=== PATIENT | male | born 1945 | race Caucasian/White ===

== ENCOUNTER → 2020-02-22 08:14 | Outpatient (REF) | payer MEDICARE, SELFPAY ==
--- NOTE | 2020-02-22 | NM_ITS ---
Myocardial perfusion study Indication: Chest pain with risk factors to evaluate for myocardial ischemia Technique: The patient was brought in for a Lexiscan perfusion study on 02/22/2020. Patient performed low-level exercise and was injected 0.4 mg of Lexiscan intravenously. Within a minute of injection, 25 mCi of sestamibi was given intravenously. Images were obtained using the SPECT gamma camera interlaced with the gating device. Images were obtained in supine position. Resting perfusion study was performed on 02/26/2020. Patient was administered 25 mCi of sestamibi intravenously at rest. Images were then obtained in supine position. Images obtained with and without CT attenuation. Total DLP 68 MGY-CM. Images were processed with the software and compared side to side in short axis, horizontal long axis and vertical long axis views. Findings: The stress perfusion study showed non attenuated images show mildly reduced uptake in the inferior wall of the LV myocardium. Remainder of the LV myocardium is normally perfused. Attenuation corrected images show minimally reduced uptake in the apex of the LV myocardium.. The gated study shows normal LV systolic function with calculated LVEF of greater than 70 %. LV cavity is normal in size. The gated study shows normal systolic wall thickening and contraction of segments. Resting study shows no change in perfusion pattern compared to stress perfusion study. Gating at rest reveals normal systolic wall motion with ejection fraction at greater than70 %. The findings are consistent with normal myocardial perfusion. NM/NM oneal perf SPECT rest & str Impression: 1. Myocardial perfusion imaging study shows normal myocardial perfusion 2. Gated LVEF is greater than 70% 3. Transient ischemic dilatation not present EKG is nondiagnostic for ischemia
--- NOTE | 2020-02-22 08:19 | CA_ITS ---
Transthoracic Echocardiogram Patient (Last, First, Middle): Ketan Doll A Gender: Male Date of : 1945 Age: 75 Procedure Date: 02/22/2020 Procedure Type: Transthoracic Echocardiogram Location: OP Height: 182.88 cm Weight: 81.76 kg BSA: 2.04 m2 Heart Rate: bpm BP: 150 / 73 mmHg Net C Developer: Referring MD: Reji Jennings [facility] [place] Insulator: Bro Acevedo MD Symptoms: R07.89 - Other chest pain Study Quality: Good ECG Rhythm: Sinus Conclusions: - 1. Normal LV systolic and diastolic function next 2. Normal cardiac valvular Doppler 3. No pericardial effusion Findings Left Ventricle Normal left ventricular size, thickness, and systolic function. The visually estimated ejection fraction is between 60-65%. Diastolic function is normal for age. Right Ventricle Normal right ventricular cavity size and systolic function. Atria Both atria are normal in size. There is lipomatous hypertrophy of the interatrial septum. There is a mobile atrial septum noted. There is no evidence of interatrial shunt. Aortic Valve There is mild calcification of the aortic valve. There is no aortic valve stenosis. There is no aortic valve regurgitation. Mitral Valve There is mild anterior and posterior mitral leaflet thickening. There is mild mitral annular calcification. There is trace mitral valve regurgitation. There is no mitral valve stenosis. Pulmonic Valve The pulmonic valve is likely normal. There is trace pulmonic valve regurgitation. Tricuspid Valve Likely normal tricuspid valve structure and function. Tricuspid regurgitation envelope is inadequate for calculation of right ventricular systolic pressure. Great Vessels All visible segments of the aorta are normal in size. The pulmonary artery was not well visualized. Venous The inferior vena cava is normal in size and collapses greater than 50% with inspiration. Pericardium/Pleural There is no evidence of pericardial effusion. Prior Study Comparison No prior study available for comparison. Measurements 2D Linear Measurements RVIDd: 2.71 RVIDd Index: 1.33 IVSd: 0.94 0.6-0.9/0.6-1.0 cm LVIDd: 4.98 3.9-5.3/4.2-5.9 cm LVIDd Index: 2.44 2.4-3.2/2.2-3.1 cm/m2 LVIDs: 3.26 2.0-3.6 cm LVPWd: 1.02 0.7-1.1 cm Ao Root: 3.90 2.1-3.5 cm LA Diam: 3.70 2.7-3.8/3.0-4.0 cm LAIDs Index: 1.81 1.5-2.3 cm/m2 LV Mass: 219.78 67-162/88-224 g LV Mass Index: 107.74 43-95/49-115 g/m2 LVOT Diam: 2.30 3.0+(-)1.3 cm 2D Systolic Function EF 4C: 63.70 >55% EF 2C: 62.10 >55% EF BiP: 63.80 >55% Mitral Valve MV Pk E: 0.74 MV PK A: 0.61 MV Decel Time: 179.00 E/A: 1.20 E'Lateral: 7.51 E'Medial: 6.42 E/E' Med: 11.50 E/E' Lat: 9.90 Aortic Valve AoV Pk Roberto: 1.78 AoV Mn Roberto: 1.21 AoV VTI: 0.38 AoV Pk Grad: 13.00 Aov Mn Grad: 6.00 CARYL Cont.VTI: 2.17 LVOT LVOT Pk Roberto: 0.93 LVOT Mn Roberto: 0.58 LVOT VTI: 0.20 LVOT Pk Grad: 3.00 LVOT Mn Grad: 2.00 LVOT Diam: 2.30 LVOT Area: 4.15 Diastolic Function MV Pk E: 0.74 MV Pk A: 0.61 E/A: 1.20 E'Medial: 6.42 E/E' Med: 11.50 E' Laterial: 7.51 E/E' Lat: 9.90 Tricuspid Valve TV Pk Roberto: 1.32 TV Pk Grad: 7.00 RA Press: 3.00 Great Vessels Aorta Ao Root-2D: 3.90 2.0-3.7 cm Ao Asc: 3.60 2.1-3.4 cm Ao Arch: 3.50 Updated in Other Vendor System with Status of Final Bro Acevedo MD electronically signed on 02/22/2020 3:42:07 PM with status of Final
--- NOTE | 2020-02-22 08:19 | CA_ITS ---
Acquisition Time: 2020-02-22 09:24:33 Total Exercise Time: 00:02:00 Test Indications: R07.89 - Other chest pain Medications: Protocol: LEXISCAN Max HR: 114 BPM 79% of Pred: 144 BPM Max BP: 122/076 mmHG Max Work Load: 1.0 METS Pharmacological stress test using Lexiscan while sitting and kicking his feet. Pt tolerated well, denies any anginal sx. EKG without any arrhythmias, non-diagnostic for ischemia. Nuclear images to follow. Normotensive response to test. Test reviewed with Dr. Medina Referred By: Reji Jennings Overread By: [facility]
== END ==
LOC: HO.CARD 08:14
PROVIDERS: PCP Nurse Practitioner Family; Visit Provider Nurse Practitioner Family
DX: R07.89 Other chest pain (principal)
CPT/HCPCS: 78452; 93017; 93306; A9500; J0280; J2785

== ENCOUNTER 2020-08-04 08:33 | Outpatient (REF) | payer MEDICARE, SELFPAY ==
[2020-08-04 11:56] LABS: Alanine Aminotransferase 24 U/L (0-40); Albumin Level 4.4 g/dL (3.5-5.0); Alkaline Phosphatase 101 U/L (39-117); Anion Gap 12 (12-20); Aspartate Amino Transferase 25 U/L (5-37); Bilirubin Total 1.2 mg/dL (0.0-1.0); Blood Urea Nitrogen 15 mg/dL (9-16); Calcium 9.1 mg/dL (8.4-10.2); Carbon Dioxide 28 mmol/L (22-29); Chloride 105 mmol/L (96-108); Cholesterol 160 mg/dL; Estimated Glomerular Filt Rate 59; Glucose Fasting 108 mg/dL (60-99); HDL Cholesterol 61 mg/dL; LDL Cholesterol Calculated 71 mg/dl; Potassium 4.2 mmol/L (3.3-5.1); Sodium 141 mmol/L (135-145); Total Protein 7.4 g/dL (6.5-8.0); Triglycerides 144 mg/dL
[2020-08-04 12:19] LABS: Prostate Specific Antigen Scr 2.99 ng/mL (<0.05-4.0); TSH reflex Free T4 1.29 uIU/mL (0.32-4.0)
[2020-08-04 12:27] LABS: Creatinine Urine 163.14 mg/dL; Microalbum/Creatinine Ratio Ur 4.2 ug/mg cr
== END 2020-08-04 08:34 | disposition home or self-care (01) ==
LOC: HO.HMGCLDS 08:33
PROVIDERS: PCP Nurse Practitioner Family; Visit Provider Nurse Practitioner Family
DX: Z12.5 Encounter for screening for malignant neoplasm of prostate (principal); G62.9 Polyneuropathy, unspecified; E11.9 Type 2 diabetes mellitus without complications
CPT/HCPCS: 36415; 80053; 80061; 82043; 84153; 84443

== ENCOUNTER 2020-12-05 12:46 | Outpatient (REF) | payer MEDICARE, SELFPAY ==
[2020-12-05 14:05] LABS: Glucose Urine UA NEG (NEG); Leukocyte Esterase Urine NEG (NEG); Nitrite Urine NEG (NEG); Specific Gravity - Urine 1.025 (1.005-1.025); Urine Blood NEG (NEG); Urine Ketones NEG (NEG); Urine Protein NEG (NEG-TRACE)
[2020-12-05 14:09] LABS: Appearance Urine HAZY; Color Urine YELLOW
[2020-12-05 14:21] LABS: Estimated Average Glucose 143 mg/dL; Hemoglobin A1c % 6.6 %
[2020-12-05 14:39] LABS: Alanine Aminotransferase 22 U/L (0-40); Albumin Level 4.1 g/dL (3.5-5.0); Alkaline Phosphatase 103 U/L (39-117); Anion Gap 12 (12-20); Aspartate Amino Transferase 20 U/L (5-37); Bilirubin Total 0.9 mg/dL (0.0-1.0); Blood Urea Nitrogen 16 mg/dL (9-16); Calcium 9.3 mg/dL (8.4-10.2); Carbon Dioxide 25 mmol/L (22-29); Chloride 109 mmol/L (96-108); Estimated Glomerular Filt Rate > 60; Glucose Fasting 105 mg/dL (60-99); Potassium 4.3 mmol/L (3.3-5.1); Sodium 142 mmol/L (135-145); Total Protein 6.9 g/dL (6.5-8.0)
[2020-12-05 14:45] LABS: Mucus Urine 1+ /LPF; RBC Urine 0-2 /HPF (0); Squamous Epithelial Cell Urine TRACE /LPF; WBC Urine 0 /HPF (0-4)
[2020-12-05 14:52] LABS: Microalbum/Creatinine Ratio Ur 5.1 ug/mg cr
== END 2020-12-05 12:47 | disposition home or self-care (01) ==
LOC: HO.HMGCLDS 12:46
PROVIDERS: PCP Nurse Practitioner Family; Visit Provider Nurse Practitioner Family
DX: Z00.00 Encounter for general adult medical examination without abnormal findings (principal); R10.9 Unspecified abdominal pain; E11.9 Type 2 diabetes mellitus without complications
CPT/HCPCS: 36415; 80048; 80053; 81001; 82043; 83036; 87086

== ENCOUNTER 2020-12-12 11:30 | Outpatient (REF) | payer MEDICARE, SELFPAY | END 2020-12-12 11:31 | disposition home or self-care (01) | LOC: HO.LNP 11:30 | PROVIDERS: Visit Provider Hospitalist | DX: Z20.822 Contact with and (suspected) exposure to COVID-19 (principal); J40 Bronchitis, not specified as acute or chronic | CPT/HCPCS: U0003; U0005 ==

== ENCOUNTER 2021-05-25 02:46 | Emergency (ER) | payer MEDICARE, SELFPAY ==
--- NOTE | ~2021-05-25 | CT_ITS ---
EXAMINATION: CT ABDOMEN AND PELVIS WITHOUT CONTRAST CLINICAL INFORMATION: Right flank pain COMPARISON: 08/12/2016 TECHNIQUE: Multidetector volumetric imaging was performed from the superior aspect of the liver through the pubic symphysis. Sagittal and coronal reformatted images were obtained on the technologist's workstation. This CT examination was performed using dose optimization techniques as appropriate, variously including the following: *Automated exposure control *Adjustment of mA and/or kV according to patient size (this includes techniques or standardized protocols for targeted exams where dose is matched to indication/reason for exam; i.e. extremities or head) *Use of iterative reconstruction technique DLP: 623 mGy-cm FINDINGS: LUNG BASES: The visualized lung bases are clear. Coronary artery calcifications. LIVER, GALLBLADDER, AND BILIARY TREE: The liver is normal in size, shape, and attenuation. No focal hepatic lesion or biliary ductal dilatation is present. Cholecystectomy. PANCREAS: Unremarkable. SPLEEN: Unremarkable. ADRENAL GLANDS: Unremarkable. KIDNEYS AND URETERS: The kidneys are normal in size, shape, and attenuation. Duplicated right collecting system. No hydronephrosis or hydroureter. There are at least 5 left-sided renal calculi. 0.3 cm upper pole calculus is 7.5 cm from the posterior axillary line. There is a right upper pole 0.3 cm calculus which is 7.5 cm from the posterior axillary line. Exophytic lesions are seen at the lower pole of the left kidney. While some of these are consistent with simple cysts, there is a 1.5 cm hyperdense lesion. This had measured 1.2 cm on prior. BLADDER: Unremarkable. GASTROINTESTINAL TRACT: The stomach is unremarkable. Normal caliber of the small bowel. No obstruction. No colonic wall thickening or acute inflammation. Moderate colonic stool burden. Scattered diverticulosis without diverticulitis. Normal appendix. No free air or free fluid. ABDOMINAL WALL: Fat-containing small left inguinal hernia. LYMPH NODES: Normal. VASCULAR: Normal caliber aorta with mild atherosclerotic calcification. PELVIC VISCERA: Enlarged prostate measures 5.6 cm transverse. The seminal vesicles are unremarkable. OSSEOUS STRUCTURES: No acute or suspicious osseous abnormality. Degenerative changes throughout the spine. CT/CT abdomen pelvis wo con IMPRESSION: No acute findings of the abdomen or pelvis. No hydronephrosis. Multiple bilateral nonobstructing renal calculi. Simple left renal cyst with additional exophytic lesions measuring higher than simple fluid. These have been evaluated with prior ultrasound showing no concerning findings. Fleischner guidelines were followed.
[2021-05-25 02:48] VITALS: BP 134/77; PULSE 75; RESP 18; TEMP 36.9; O2SAT 99; BMI 24.7
--- NOTE | 2021-05-25 03:47 | ED_ITS ---
HPI - General Adult General Chief complaint: Fall Stated complaint: fall, back pain Time Seen by Provider: 05/25/21 03:45 History of Present Illness HPI narrative: Patient is 76-year-old male with a history diabetes. History of gallstones. No history of kidney stones in the past. Presents today with having fallen approximately 1 week ago. At the time patient did not notice any bowel urinary incontinence. States pain has been under control. Today patient turned the wrong way subsequently noted pain in the right flank area. It is worse with movement. No fever no chills. No bowel urinary incontinence. Positive history of cholecystectomy. No other abdominal surgery. Patient from home. No coughing or congestion or upper respiratory symptoms. No chest pain or diaphoresis. Patient from home. Related Data Previous Rx's Medication Instructions Recorded ibuprofen 800 mg tablet 800 mg PO BID PRN 90 Days #180 tab 07/23/20 trazodone 150 mg tablet 150 mg PO BEDTIME #90 tab 07/23/20 dexamethasone 4 mg tablet 4 mg PO .COMPLEX #18 tab 12/11/20 doxycycline hyclate 100 mg tablet 100 mg PO BID #14 tab 12/11/20 gabapentin 600 mg tablet 600 mg PO BEDTIME 90 Days #90 tab 12/29/20 lisinopril 5 mg tablet 5 mg PO DAILY 90 Days #90 tab 12/29/20 atorvastatin 80 mg tablet 80 mg PO DAILY 90 Days #90 tab 05/17/21 Allergies Allergy/AdvReac Type Severity Reaction Status Date / Time Environmental Allergy Unknown Unknown Uncoded 05/25/21 02:48 Review of Systems Verdana 4l Review of Systems: Verdana 4d Positive pain to the right Verdana 4d flank area. No radiation of the pain. No nausea no vomiting no diaphoresis. No chest pain or shortness of breath. Verdana 4d Yes all other systems are reviewed and are negative PMFSH Past Medical History Attestation statement: The following information was validated with the patient. Medical History Coarse tremor Diabetes Dyslipidemia HTN (hypertension) Neuropathy Polyneuropathy associated with underlying disease Surgical History History of laparoscopic cholecystectomy History of surgery Family History Family History Father History of heart attack Mother History of heart attack Brother No problems noted. Brother No problems noted. Brother Colon cancer Cancer of prostate History of quadruple bypass Brother No problems noted. Brother No problems noted. Sister No problems noted. Sister No problems noted. Son Colon cancer Social History Social History Advance Directives: No Advance Directives Information Provided: Yes Physical Exam Verdana 4l Vital Signs: Verdana 4d Verdana 4d Vital Signs: Verdana 4d Verdana 4Bd Last Vital Signs Verdana 4d Director Network Development New 4d Director [employer] Development New 4d Temp 98.5 F 05/25/21 02:48 Director Network Development New 4d Pulse 73 05/25/21 03:53 Director Network Development New 4d Resp 16 05/25/21 03:53 BP 118/56 L 05/25/21 03:53 Pulse Ox 97 05/25/21 03:53 BMI result Body Mass Index 24.7 Appearance: Alert. Oriented X3. No acute distress. Eyes: Pupils equal, round and reactive to light. ENT: Pharynx normal. Neck: Normal inspection. Neck supple. No lymph nodes noted. No crepitus CVS: Normal heart rate and rhythm. Pulses normal. Normal S1 and S2 Respiratory: No respiratory distress. Breath sounds normal. No Wheezing. No rales Abdomen: Soft and nontender. No rigidity. No distention. good BS x4 Skin: Skin warm and dry. Normal skin color. Normal skin turgor. Extremities: No lower extremity edema. Neurovascular intact to all extremities. No Lacerations. No Rash Neuro: Oriented X 3. No motor deficit. No sensory deficit. Moving all extermities. No slurred speech Back exam there is no spinal tenderness elicited on palpation. Medical Decision Making MDM Narrative Medical decision making narrative: Patient has pain to the right flank area. CT scan of the abdomen pelvis showed no evidence of ureteral stone. No obstruction no abscess no perforation. No bony injury noted. Patient's creatinine is normal. Liver profile is normal. Patient in stable condition. Pain most likely musculoskeletal in nature. Urine showed no signs of infection. In stable condition. There is no bowel urinary incontinence is no focal weakness. Lab Data Result diagrams: 05/25/21 04:32 05/25/21 04:32 Labs: Lab Results 05/25/21 05/25/21 05/25/21 Range/Units 04:32 04:32 05:10 WBC 9.8 (4.8-10.8) X10*3/uL RBC 4.62 (4.60-5.80) X10*6/uL Hgb 14.4 (14.0-18.0) g/dl Hct 44.5 (42.0-52.0) % MCV 96.3 (80.0-98.0) fL MCH 31.2 (27.0-33.0) pg MCHC 32.4 (31.0-36.0) g/dl RDW 13.0 (11.0-16.0) % Plt Count 217 (160-400) X10*3/uL MPV 9.7 (9.4-12.4) fL Immature Gran % (Auto) 0.5 H (0.0-0.4) % Neut % (Auto) 71.1 (45-73) % Lymph % (Auto) 15.6 L (20-40) % Bee % (Auto) 10.9 (2-11) % Eos % (Auto) 1.4 (0-4) % Baso % (Auto) 0.5 (0-2) % Lymph # (Auto) 1.5 (1.2-4.9) X10*3/uL Bee # (Auto) 1.1 (0.1-1.2) X10*3/uL Eos # (Auto) 0.1 (0.0-0.4) X10*3/uL Baso # (Auto) 0.1 (0.0-0.2) X10*3/uL Abs Immat Gran (auto) 0.05 H (0.00-0.03) X10*3/uL Absolute Neuts (auto) 6.9 (2.0-8.3) x10*3/uL Absolute Nucleated RBC 0.000 (0.0-0.012) X10*3/uL Nucleated RBC % (auto) 0.0 (0.0-0.2) /100WBC Sodium 140 (135-145) mmol/L Potassium 4.8 (3.3-5.1) mmol/L Chloride 106 (96-108) mmol/L Carbon Dioxide 28 (22-29) mmol/L Anion Gap 11 L (12-20) BUN 17 H (9-16) mg/dL Creatinine 1.20 (0.5-1.4) mg/dL Estim Creat Clear Calc 56.5 Estimated GFR 59 Random Glucose 145 H (60-115) mg/dL Calcium 9.6 (8.4-10.2) mg/dL Total Bilirubin 1.1 H (0.0-1.0) mg/dL Direct Bilirubin 0.4 (0.0-0.5) mg/dL AST 17 (5-37) U/L ALT 15 (0-40) U/L Alkaline Phosphatase 98 (39-117) U/L Total Protein 6.8 (6.5-8.0) g/dL Albumin 4.0 (3.5-5.0) g/dL Urine Color YELLOW Urine Appearance CLEAR Urine pH 6.0 (5.0-8.0) Ur Specific Romeo 1.020 (1.005-1.025) Urine Protein NEG (NEG-TRACE) MG/DL Urine Glucose (UA) NEG (NEG) MG/DL Urine Ketones NEG (NEG) MG/DL Urine Blood NEG (NEG) Urine Nitrite NEG (NEG) Ur Leukocyte Esterase 1+ H (NEG) Urine RBC 1-4 (0) /HPF Urine WBC 1-4 (0-4) /HPF Ur Squamous Epith Cells 1+ /LPF Urine Bacteria 1+ /LPF Hyaline Casts 0-2 /LPF Urine Mucus 1+ /LPF Discharge Plan Discharge Clinical Impression: Back pain Patient Disposition: Home, Self-Care Instructions: Back Pain (ED) Prescriptions: No Action trazodone 150 mg tablet 150 mg PO BEDTIME Qty: 90 3RF ibuprofen 800 mg tablet 800 mg PO BID PRN (Reason: pain) 90 Days Qty: 180 3RF gabapentin 600 mg tablet 600 mg PO BEDTIME 90 Days Qty: 90 1RF lisinopril 5 mg tablet 5 mg PO DAILY 90 Days Qty: 90 1RF atorvastatin 80 mg tablet 80 mg PO DAILY 90 Days Qty: 90 0RF dexamethasone 4 mg tablet 4 mg PO .COMPLEX Qty: 18 0RF Rx Instructions: 4 mg PO; 1 p.o. t.i.d. x3 days, 1 p.o. b.i.d. x3 days, 1 p.o. daily x3 days doxycycline hyclate 100 mg tablet 100 mg PO BID Qty: 14 0RF Referrals: Reji Jennings, [employer] [Primary Care Provider] - 2 days (Ice rest Motrin for pain.)
[2021-05-25 03:53] VITALS: BP 118/56; PULSE 73; RESP 16; O2SAT 97
[2021-05-25 04:36] LABS: Basophils Absolute Auto 0.1 X10*3/uL (0.0-0.2); Basophils Percent Auto 0.5 % (0-2); Eosinophils Absolute Auto 0.1 X10*3/uL (0.0-0.4); Eosinophils Percent Auto 1.4 % (0-4); Hematocrit 44.5 % (42.0-52.0); Hemoglobin 14.4 g/dl (14.0-18.0); Imm Gran Abs Auto 0.05 X10*3/uL (0.00-0.03); Imm Gran Pct Auto 0.5 % (0.0-0.4); Lymphocytes Absolute Auto 1.5 X10*3/uL (1.2-4.9); Lymphocytes Percent Auto 15.6 % (20-40); MANUAL DIFF FLAG NO; Mean Corpuscular HGB Conc 32.4 g/dl (31.0-36.0); Mean Corpuscular Hemoglobin 31.2 pg (27.0-33.0); Mean Corpuscular Volume 96.3 fL (80.0-98.0); Mean Platelet Volume 9.7 fL (9.4-12.4); Monocytes Absolute Auto 1.1 X10*3/uL (0.1-1.2); Monocytes Percent Auto 10.9 % (2-11); Neutrophils Absolute Auto 6.9 x10*3/uL (2.0-8.3); Neutrophils Percent Auto 71.1 % (45-73); Platelet Count 217 X10*3/uL (160-400); Red Blood Count 4.62 X10*6/uL (4.60-5.80); White Blood Count 9.8 X10*3/uL (4.8-10.8)
[2021-05-25 04:56] LABS: Alanine Aminotransferase 15 U/L (0-40); Alkaline Phosphatase 98 U/L (39-117); Anion Gap 11 (12-20); Aspartate Amino Transferase 17 U/L (5-37); Bilirubin Direct 0.4 mg/dL (0.0-0.5); Bilirubin Total 1.1 mg/dL (0.0-1.0); Blood Urea Nitrogen 17 mg/dL (9-16); Calcium 9.6 mg/dL (8.4-10.2); Carbon Dioxide 28 mmol/L (22-29); Chloride 106 mmol/L (96-108); Creatinine Clr Calc Pharmacy 56.5; Estimated Glomerular Filt Rate 59; Glucose Random 145 mg/dL (60-115); Potassium 4.8 mmol/L (3.3-5.1); Sodium 140 mmol/L (135-145); Total Protein 6.8 g/dL (6.5-8.0)
[2021-05-25 05:17] LABS: Appearance Urine CLEAR; Color Urine YELLOW; Glucose Urine UA NEG (NEG); Leukocyte Esterase Urine 1+ (NEG); Nitrite Urine NEG (NEG); UACC Culture Trigger YES; Urine Blood NEG (NEG); Urine Ketones NEG (NEG); Urine Protein NEG (NEG-TRACE)
[2021-05-25 05:25] LABS: Bacteria Urine 1+ /LPF; Hyaline Casts Urine 0-2 /LPF; Mucus Urine 1+ /LPF; Squamous Epithelial Cell Urine 1+ /LPF; UACC CULT YES
== END 2021-05-25 06:26 | disposition home or self-care (01) ==
PROVIDERS: Emergency Provider Emergency Medicine Emergency Medical Services; PCP Nurse Practitioner Family
DX: M54.9 Dorsalgia, unspecified (principal); E11.9 Type 2 diabetes mellitus without complications; I10 Essential (primary) hypertension; E78.5 Hyperlipidemia, unspecified; Z79.02 Long term (current) use of antithrombotics/antiplatelets
CPT/HCPCS: 36415; 74176; 80048; 80076; 81001; 85025; 87086; 96374; 96375; 99283; 99284

== ENCOUNTER 2021-12-02 13:58 | Outpatient (REF) | payer MEDICARE, SELFPAY ==
[2021-12-02 18:01] LABS: Prostate Specific Antigen Scr 2.06 ng/mL (<0.05-4.0)
== END 2021-12-02 13:59 | disposition home or self-care (01) ==
LOC: HO.HMGCLDS 13:58
PROVIDERS: PCP Nurse Practitioner Family; Visit Provider Nurse Practitioner Family
DX: Z12.5 Encounter for screening for malignant neoplasm of prostate (principal)
CPT/HCPCS: 36415; 84153

== ENCOUNTER 2025-02-05 13:50 | Outpatient (REF) | payer MEDICARE, SELFPAY ==
[2025-02-05 16:23] LABS: MANUAL DIFF FLAG NO
[2025-02-05 16:32] LABS: Appearance Urine Clear; Glucose Urine UA Negative (Negative); PH 6.5 (5.0-9.0); Specific Gravity - Urine 1.020 (1.005-1.025); UMIC TRIGGER UACC YES
[2025-02-05 16:33] LABS: Hematocrit 46.9 % (42.0-52.0); Hemoglobin 15.4 g/dl (14.0-18.0); Imm Gran Abs Auto 0.03 X10*3/uL (0.00-0.03); Imm Gran Pct Auto 0.5 % (0.0-0.4); Lymphocytes Absolute Auto 1.4 X10*3/uL (1.2-4.9); Mean Corpuscular HGB Conc 32.8 g/dl (31.0-36.0); Mean Corpuscular Hemoglobin 32.0 pg (27.0-33.0); Mean Corpuscular Volume 97.5 fL (80.0-98.0); NRBC Abs Auto 0.000 X10*3/uL (0.0-0.012); NRBC Pct Auto 0.0 /100WBC (0.0-0.2); Platelet Count 224 X10*3/uL (160-400); Red Blood Count 4.81 X10*6/uL (4.60-5.80); White Blood Count 6.4 X10*3/uL (4.8-10.8)
[2025-02-05 16:36] LABS: UACC Culture Trigger YES
[2025-02-05 17:14] LABS: Erythrocyte Sedimentation Rate 3 MM/HR (0-15)
[2025-02-05 17:25] LABS: PSA,Total (Free>4and<10) 4.71 ng/mL (0.00-4.00)
[2025-02-05 17:27] LABS: Alanine Aminotransferase 13 U/L (0-40); Albumin Level 4.6 g/dL (3.5-5.0); Alkaline Phosphatase 120 U/L (39-117); Anion Gap 11 (12-20); Aspartate Amino Transferase 22 U/L (5-37); Blood Urea Nitrogen 9 mg/dL (9-16); Calcium 9.6 mg/dL (8.4-10.2); Carbon Dioxide 29 mmol/L (22-29); Chloride 107 mmol/L (96-108); Cholesterol 204 mg/dL (<200); Estimated Glomerular Filt Rate > 60; HDL Cholesterol 60 mg/dL (>40); Magnesium 2.0 mg/dL (1.6-2.6); Potassium 4.3 mmol/L (3.3-5.1); Sodium 143 mmol/L (135-145); Total Protein 7.6 g/dL (6.5-8.0); Triglycerides 162 mg/dL (<150)
[2025-02-05 17:34] LABS: Folate 8.3 ng/mL (> or = 4.0); Vitamin B12 371 pg/mL (200-900)
[2025-02-06 13:03] LABS: Free Prostate Spec Ag 1.5 ng/mL; Percent Free Prostate Spec Ag 29 % (calc) (>25)
== END 2025-02-05 13:51 | disposition home or self-care (01) ==
LOC: HO.HMGCLDS 13:50
PROVIDERS: PCP Internal Medicine; Visit Provider Physician Assistant Medical
DX: Z00.00 Encounter for general adult medical examination without abnormal findings (principal); M79.604 Pain in right leg; E11.9 Type 2 diabetes mellitus without complications; J44.9 Chronic obstructive pulmonary disease, unspecified; F41.9 Anxiety disorder, unspecified; F32.A Depression, unspecified; R03.0 Elevated blood-pressure reading, without diagnosis of hypertension; Z79.899 Other long term (current) drug therapy
CPT/HCPCS: 36415; 80053; 80061; 80076; 81001; 82248; 82306; 82607; 82746; 83036; 83735; 84153; 84154; 84443; 85025; 85652; 86140; 87086; 96127

== ENCOUNTER 2025-02-05 13:50 | Outpatient (AMB) | payer OTHER, MEDICARE, SELFPAY ==
--- NOTE | 2025-02-05 13:59 | A.OFFPC_ITS ---
Vital Signs 02/05/25 14:04 02/05/25 15:10 Height 5 ft 9.69 in Weight 181 lb 2 oz BMI 26.2 BP 160/70 H 142/84 H Blood Pressure Location Lt brachial Position Sitting Respiration 16 Pulse 68 Pulse Source Pulse Oximeter Temp 98.1 F Temp Source Temporal Artery Scan Pulse Oximetry (%) 98 Oxygen Delivery Method Room Air Intake Visit Reasons: Establish Care Liquor Bridge Operator Required: No Accompanied by: Self / Same As Patient Allergies Environmental Allergy (Unknown, Uncoded 02/05/25 14:24) Unknown Medication List - Last Reconciled 02/05/25 by Bozena Maria PA-C albuterol 90 mcg/actuation mcg inhalation atorvastatin 80 mg PO DAILY budesonide 0.5 mg inhalation BEDTIME gabapentin 800 mg PO DAILY ibuprofen 800 mg PO BID PRN 90 days ipratropium bromide 2 sprays intranasal ONCE ipratropium-albuterol 0.5 mg-3 mg(2.5 mg base)/3 mL 3 mL inhalation BEDTIME PRN trazodone 150 mg PO BEDTIME Dental Screening Dental Screen Date: 02/05/25 Did you have a dental visit in the last 12 months?: Yes Did you have a dental problem in the last 6 months where you did not have access to dental care?: No Was dental information given to patient?: Patient has dentist HPI Establish Care HPI Details The patient is an 79-year-old male presenting with a annual physical exam and management of chronic conditions, including right leg pain and monitoring of blood pressure. The patient reports right leg pain exacerbated by prolonged sitting or driving, requiring manual assistance to exit the car. Pain relief is achieved with ibuprofen and gabapentin, taken as needed. The patient has a history of diabetes, currently not on medication due to stable A1c levels. He previously used metformin but discontinued it after achieving control over his blood glucose levels. A1c level today 6.9. Patient would like to continue diet controlled diabetes. He does not want to be restarted on metformin due to adverse side effects in the past. The patient has a history of smoking, contributing to possible COPD, with wheezing noted after exertion. The patient reports a history of anxiety and depression but denies current symptoms, attributing previous scores to accidental reporting. He uses trazodone for sleep, occasionally disrupted by leg pain. The patient is advised to monitor his blood pressure at home due to slight elevation during the visit. Dietary recommendations were provided to assist in managing blood pressure. Social History - Housing: Lives with ex-harsha a supportive living arrangement. - Substance Use: History of smoking, cea sed many years ago. - Functional Status: Reports difficulty with leg pain affecting mobility, particularly after prolonged sitting or driving. [facility] Medical History (Updated 02/05/25 @ 15:18 by Bozena Maria PA-C) Elevated blood pressure reading Anxiety and depression Diabetes mellitus type 2, diet-controlled Annual physical exam COPD (chronic obstructive pulmonary disease) Right leg pain Neuropathy Coarse tremor Dyslipidemia HTN (hypertension) Polyneuropathy associated with underlying disease Diabetes Surgical History History of surgery History of laparoscopic cholecystectomy Family History Father History of heart attack Mother History of heart attack Brother No problems noted. Brother No problems noted. Brother Colon cancer Cancer of prostate History of quadruple bypass Brother No problems noted. Brother No problems noted. Sister No problems noted. Sister No problems noted. Son Colon cancer Social History Housing: House Patient Tobacco Use Status: Never used Tobacco service: No Current occupational status: retired Cognitive needs: No Hearing needs: No Vision needs: Yes (rx glasses) Questionnaire PHQ-9 Over the last 2 weeks, how often have you been bothered by any of the following problems? 1. Little interest or pleasure in doing things: not at all 2. Feeling down, depressed, or hopeless: not at all 3. Trouble falling or staying asleep, or sleeping too much: not at all 4. Feeling tired or having little energy: not at all 5. Poor appetite or overeating: not at all 6. Feeling bad about yourself - or that you are a failure or have let yourself or your family down: not at all 7. Trouble concentrating on things, such as reading the newspaper or watching television: not at all 8. Moving or speaking so slowly that other people could have noticed. Or the opposite - being so fidgety or restless that you have been moving around a lot more than usual: not at all 9. Thoughts that you would be better off or of hurting yourself in some way: not at all Total score: 0 Depression Screening Interpretation: Negative Depression Screening Done: Yes 26053 - PHQ-9 Billing: Yes Source: Developed by Drs. Kobe Soriano, Sydni Oconnor, Gene Bills and colleagues, with an educational irgo from [employer]. Thrive Questionnaire Date Thrive assessed: 02/05/25 I am a: Patient What is your living situation today?: I have a steady place to live Within the past 12 months, did the food you bought not last and you didn't have the money to get more?: Never true Within the past 12 months, did you worry whether your food would run out before you got money to buy more?: Never true Do you have trouble paying for medicines?: No Do you have trouble getting transportation to medical appointments?: No Do you have trouble paying your heating and electricity bill?: No Do you have trouble taking care of your child, family member or friend?: No Do you have trouble with day-to-day activities such as bathing, preparing meals, shopping, managing finances, etc.?: No Are you currently unemployed and looking for a job?: No Are you interested in more education?: No Please select the resources that you would like help with: None THRIVE Score: 0 AUDIT C Alcohol Use Questionnaire (AUDIT-C) 1. How often do you have a drink containing alcohol?: Never 3. How often do you have six or more drinks on one occasion?: Never Total Score: 0 Score Reviewed/Action Taken: No MELLY-7 AMB Questionnaire MELLY-7 Date MELLY - 7 assessed: 02/05/25 Feeling nervous, anxious, or on edge: 0 = Not at all Not being able to stop or control worryin = Not at all Worrying too much about different things: 0 = Not at all Trouble relaxin = Not at all Being so restless that it is hard to sit still: 0 = Not at all Becoming easily annoyed or irritable: 0 = Not at all Feeling afraid as if something awful might happen: 0 = Not at all Total MELLY-7 score (0-4 normal; 5-9 mild; 10-14 moderate; 15-21 severe): 0 Source: Developed by Drs. Kobe Soriano, Sydni Oconnor, Gene Bills and colleagues, with an educational rigo from [employer]. MELLY-7 Assessment Billing MELLY-7 Assessment Tool: MELLY-7 Assessment 09589 Review of Systems Const Details: - Musculoskeletal: Reports right leg pain exacerbated by prolonged sitting or driving. - Respiratory: Reports wheezing after physical exertion. Denies dyspnea when lying flat. - Endocrine: Denies current symptoms of diabetes, A1c stable. - Neurological: Reports sleep disruption due to leg pain. Denies other neurological symptoms. - Psychiatric: Denies current anxiety or depression symptoms. All systems reviewed & are unremarkable except as noted in HPI and below Physical exam (Primary Care) Vital Signs: Last Vital Signs Temp 98.1 F 02/05/25 14:04 Pulse 68 02/05/25 14:04 Resp 16 02/05/25 14:04 BP 160/70 H 02/05/25 14:04 Pulse Ox 98 02/05/25 14:04 Oxygen Delivery Method Room Air 02/05/25 14:04 Care Plan Goal for BP management: <140/90 patient will monitor his blood pressure over the next month and will return with blood pressure diary we will consider blood pressure medication if blood pressure still elevated BMI result Body Mass Index 26.2 BMI Assessment/Plan discussion: High Tobacco/Smoking Status: Tobacco use Status Patient Tobacco Use Status Never used Tobacco 02/05/25 14:16 PHQ-9: PHQ-9 Score PHQ-9: Total score 0 02/05/25 14:36 Depression Screening Interpretation: Negative Thrive Assessment: Date of Thrive Assessment Date Thrive assessed 02/05/25 02/05/25 14:16 Const Other: Appearance: Alert. Oriented X3. No acute distress. Head: Normal external exam. Normocephalic. Atraumatic. Eyes: Pupils are equal, round, and reactive to light. Extraocular movements intact. Conjunctiva and sclera normal. Eyelids normal. Ears: External auditory canal normal. Tympanic membranes normal. Throat: Pharynx normal. Uvula midline. Moist mucous membranes. Neck: Normal inspection. Neck supple. Full range of motion. No adenopathy. Thyroid Normal. No meningeal signs. No neck mass noted. Cardiovascular: Normal heart rate and rhythm. Heart sound normal. No murmurs noted. Pulses normal throughout. Respiratory: No respiratory distress. Painless inspiration. Breath sounds normal. No wheezes/rales/rhonchi noted. Chest nontender. No accessory muscle usage noted or decreased air movement noted. Abdomen: Soft and nontender. Bowel sounds normal in all 4 quadrants. No distention noted. No organomegaly noted. No visible injury noted. Back: No costovertebral angle tenderness. Full range of motion noted. Skin: Skin warm and dry. Normal skin color. Normal skin turgor. No rashes/lesions/lacerations noted. Extremities: No lower extremity edema. Reports pain in the right leg, especially after sitting for long periods or driving. Otherwise all other extremities exhibit normal range of motion nontender. Neuro: Oriented X 3. No motor deficit. No sensory deficit. Reflexes normal. Results AMB Hemoglobin A1c AMB Hemoglobin A1c 6.9 % Last Edit by WANDA Arreola on 02/05/25 14:57 Results Reviewed Results Reviewed: - Labs: Comprehensive blood work ordered including CBC, CMP, cholesterol, liver enzymes, thyroid, urine analysis, vitamin B12, vitamin D, and PSA. Coding Level of Care Code New Pt Level 4 (44336) New Pt Prev Care >65yr (15876) Diagnoses Annual physical exam Z00.00 Right leg pain M79.604 Diabetes mellitus type 2, diet-controlled E11.9 COPD (chronic obstructive pulmonary disease) J44.9 Anxiety and depression F41.9; F32.A Elevated blood pressure reading R03.0 Additional Codes PHQ-9 - 15340 - PHQ-9 Billing: Yes ([id number]) MELLY-7 Assessment Billing - MELLY-7 Assessment Tool: MELLY-7 Assessment 90444 ([id number]) Time Spent (min) 50 Assessment & Plan Assessment & Plan (1) Annual physical exam: Code(s): Z00.00 - Encounter for general adult medical examination without abnormal findings Category: Medical (2) Right leg pain: Code(s): M79.604 - Pain in right leg Category: Medical Plan: The patient reports right leg pain exacerbated by prolonged sitting or driving, requiring manual assistance to exit the car. Pain relief is achieved with ibuprofen and gabapentin, taken as needed. Physical therapy was discussed as a potential intervention, contingent upon insurance coverage. (3) Diabetes mellitus type 2, diet-controlled: Code(s): E11.9 - Type 2 diabetes mellitus without complications Category: Medical Plan: The patient has a history of diabetes but is not currently on medication due to stable A1c levels. He previously used metformin but discontinued it after achieving control over his blood glucose levels. A1c level 6.9. Will continue diet-controlled. (4) COPD (chronic obstructive pulmonary disease): Code(s): J44.9 - Chronic obstructive pulmonary disease, unspecified Category: Medical Plan: The patient has a history of smoking, contributing to possible COPD, with wheezing noted after exertion. A referral to pulmonology was made for further evaluation and management. (5) Anxiety and depression: Code(s): F41.9 - Anxiety disorder, unspecified; F32.A - Depression, unspecified Category: Medical Plan: The patient reports a history of anxiety and depression but denies current s ymptoms, attributing previous scores to accidental reporting. He uses trazodone for sleep, occasionally disrupted by leg pain. (6) Elevated blood pressure reading: Code(s): R03.0 - Elevated blood-pressure reading, without diagnosis of hypertension Category: Medical Plan: The patient's blood pressure was slightly elevated at 142/84 mmHg during the visit. He was advised to monitor his blood pressure at home and provided with dietary recommendations to assist in management. Plan Plan Patient was informed and verbally consented to the use of an ambient scribe for clinic note documentation during this visit. 1. Right Leg Pain The patient reports right leg pain exacerbated by prolonged sitting or driving, requiring manual assistance to exit the car. Pain relief is achieved with ib uprofen and gabapentin, taken as needed. Physical therapy was discussed as a potential intervention, contingent upon insurance coverage. 2. History Of Diabetes The patient has a history of diabetes but is not currently on medication due to stable A1c levels. He previously used metformin but discontinued it after achieving control over his blood glucose levels. 3. Possible Chronic Obstructive Pulmonary Disease (Copd) The patient has a history of smoking, contributing to possible COPD, with wheezing noted after exertion. A referral to pulmonology was made for further evaluation and management. 4. Anxiety And Depression The patient reports a history of anxiety and depression but denies current symptoms, attributing previous scores to accidental reporting. He uses trazodone for sleep, occasionally disrupted by leg pain. 5. Hypertension The patient's blood pressure was slightly elevated at 142/84 mmHg during the visit. He was advised to monitor his blood pressure at home and provided with dietary recommendations to assist in management. During the visit, I discussed with the patient the importance of monitoring his blood pressure at home and provided dietary recommendations to help manage it. We also talked about the potential benefits of physical therapy for his right leg pain, contingent upon insurance coverage. A referral to pulmonology was made to evaluate possible COPD due to his history of smoking and exertional wheezing. Orders: Orders PT Evaluation and Treatment Today M79.604 - Pain in right leg C Reactive Protein Today Z00.00 - Encounter for general adult medical examination without abnormal findings Comprehensive [place]. Panel Fast Today Z00.00 - Encounter for general adult medical examination without abnormal findings Erythrocyte Sedimentation Rate Today Z00.00 - Encounter for general adult medical examination without abnormal findings Liver Panel Today Z00.00 - Encounter for general adult medical examination without abnormal findings Lipid Panel Today Z00.00 - Encounter for general adult medical examination without abnormal findings UA CC w/rflx Micro + Cult Today Z00.00 - Encounter for general adult medical examination without abnormal findings Vitamin B12 and Folate Today Z00.00 - Encounter for general adult medical examination without abnormal findings PSA,Total (Free>4and<10) Today Z00.00 - Encounter for general adult medical examination without abnormal findings AMB Hemoglobin A1c Today E11.9 - Type 2 diabetes mellitus without complications Complete Blood Count Auto Diff Today Z00.00 - Encounter for general adult me dical examination without abnormal findings Magnesium Today Z00.00 - Encounter for general adult medical examination without abnormal findings TSH reflex Free T4 Today Z00.00 - Encounter for general adult medical examination without abnormal findings Vitamin D 25-OH Total Today Z00.00 - Encounter for general adult medical examination without abnormal findings Referrals Pulmonology Referral J44.9 - Chronic obstructive pulmonary disease, unspecified Medications: New budesonide 0.5 mg inhalation BEDTIME 60 mL 3RF Patient Instructions: - Monitor blood pressure at home regularly and record the readings. - Follow dietary recommendations to help manage blood pressure. - Consider physical therapy for right leg pain if covered by insurance. - Attend the pulmonology referral appointment for further evaluation of possible COPD.
[2025-02-05 14:04] VITALS: BP 160/70; PULSE 68; RESP 16; TEMP 36.7; O2SAT 98; BMI 26.2
[2025-02-05 15:10] VITALS: BP 142/84
--- OUTSIDE RECORDS SUMMARY | 2025-02-05 16:49 | XMS_ITS | Encounter Summary ---
Author Organization [facility] Address [address] [place] [address] [place] [id number] Phone Care Team Providers Care Cosmetic Sales Name Role Phone Nicholas Newby MD Primary Care Provider [phone] Encounter Details Date Type Department Care Team (Late st Contact Info) Description 08/25/2023 Procedure Pass MRI, [facility] - [address], [address] [place] [id number] Social History Tobacco Use Types Packs/Day Years Used Date Smoking Tobacco: Former Smokeless Tobacco: Never Education Answer Date Recorded Are you interested in more education? Not on chadd e 08/20/2022 Are you concerned about learning? Not on file 08/20/2022 No 08/20/2022 No 08/20/2022 Digital Access Answer Date Recorded No 09/21/2022 No 09/21/2022 Reliable internet access at home? Not on file 09/21/2022 Device with a working camera? Not on file Sex and Gender Information Value Date Recorded Sex Assigned at Male 02/18/2022 1:04 PM EDT Legal Sex Male 9:24 AM EDT Gender Identity Male 02/18/2022 1:04 PM EDT Sexual Orientation Straight 02/18/2022 1: 04 PM EDT documented as of this encounter Plan of Treatment Not on file documented as of this encounter Visit Diagnoses Not on filedocumented in this encounter Care Teams Cosmetic Sales Relationship Specialty Start Date End Date Nicholas Newby MD [address] [id number] [email or web address] PCP - General Internal Medicine 02/18/22 documented as of this encounter Additional Source Comments The information contained in this document represents components of the legal health record. It is not the complete legal health record.[facility]
--- OUTSIDE RECORDS SUMMARY | 2025-02-05 16:49 | XMS_ITS | Encounter Summary ---
Author Organization [facility] Address [address] [place] [address] [place] [address] Phone Care Team Providers Care Infant Babysitter Name Role Phone Nicholas Newby MD Primary Care Provider [phone] Encounter Details Date Type Department Care Team (Late st Contact Info) Description 08/19/[address], [facility] - [address], [address] [place] [id number] Social History Tobacco Use Types Packs/Day Years Used Date Smoking Tobacco: Former Smokeless Tobacco: Never Education Answer Date Recorded Are you interested in more education? Not on chadd e 08/20/2022 Are you concerned about learning? Not on file 08/20/2022 No 08/20/2022 No 08/20/2022 Sex and Gender Information Value Date Recorded Sex Assigned at Male 02/18/2022 1:04 PM EDT Legal Sex Male 9:24 AM EDT Gender Identity Male 02/18/2022 1:04 PM EDT Sexual Orientation Straight 02/18/2022 1: 04 PM EDT documented as of this encounter Plan of Treatment Not on file documented as of this encounter Visit Diagnoses Not on filedocumented in this encounter Additional Health Concerns Infection Onset Date Last Indicated Resolved Time CoV-Risk 07/25/2023 07/25/2023 08/05/2023 1:21 AM EDT documented as of this encounter Care Teams Infant Babysitter Relationship Specialty Start Date End Date Nicholas Newby MD [address] [address] [email or web address] PCP - General Internal Medicine 02/18/22 documented as of this encounter Additional Source Comments The information contained in this document represents components of the legal health record. It is not the complete legal health record.[facility]
--- OUTSIDE RECORDS SUMMARY | 2025-02-05 16:49 | XMS_ITS | Encounter Summary ---
Author Organization [facility] Address [address] [place] [address] Phone Care Team Providers Care Lyric Writer Name Role Phone Nicholas Newby MD Primary Care Provider [phone] Reason for Referral * MRI/CAT Scan - Closed Specialty Diagnoses / Procedures Referred By Lisa lombardo Referred To Contact Radiology Diagnoses Chronic cough Procedures CT Chest CHG DIAGNOSTIC COMPUTED TOMOGRAPHY THORAX W/CONTRAST Nicholas Newby MD [address] [address] Phone: tel: fax: [email or web address] Referral ID Status Reason Start Date Expiration Date Visits Re quested Visits Authorized [id number] Closed 08/27/2022 09/26/2022 1 1 Encounter Details Date Type Department Care Team (Late st Contact Info) Description 08/19/2022 Ancillary Orders [facility] Radiology Department [address] Intern [address] [place] [address] Nicholas Newby MD [address] [address] [email or web address] Chronic cough Social History Tobacco Use Types Packs/Day Years [...] 1:04 PM EDT Sexual Orientation Straight 02/18/2022 1 :04 PM EDT documented as of this encounter Plan of Treatment Not on file documented as of this encounter Results * CT CHEST WITH CONTRAST (08/27/2022 9:13 PM EDT) Anatomical Region Laterality Modality Chest Computed Tomogra phy 09/08/2022 9:56 AM EDT Impressions 09/08/2022 10:03 AM EDT Pulmonary nodules measuring up to 3 mm which are nonspecific Diffuse bronchial wall thickening keeping with bronchitis. No evidence of fibrotic sequela of Covid RECOMMENDATION: If the patient is low risk for malignancy, no follow up CT is necessary. If there is a history of smoking, Chest CT in 12 months. If there is a history of malignancy within the past 5 years, follow-up chest CT in 3 months. Narrative 09/08/2022 10:[address] CHEST WITH CONTRAST TECHNIQUE: Multidetector CT of the chest was performed with intravenous contrast using tailored dose modulation techniques. COMPARISON: None available FINDINGS: Devices/Tubes/Lines: None. Lungs: The central airways are patent. There is mild diffuse bronchial wall thickening. There is subsegmental atelectasis in the lingula. There are scattered nodules measuring up to 3 mm including in the RIGHT lung on image 83, 412, 475, and 533. There are scattered calcified granulomas. Pleura: No pleural effusion or pneumothorax. Mediastinum: The visualized thyroid gland is normal. There is mild coronary artery calcification. Cardiac chambers are within normal limits. There is no pericardial effusion. There is a small hiatal hernia. Lymph Nodes: No enlarged supraclavicular, axillary, mediastinal, or hilar lymph nodes. Upper Abdomen: Limited contrast-enhanced images of the upper abdomen were obtained. There are no focal lesions in the visualized liver, spleen, or RIGHT kidney. There are nonobstructing calculi measuring up to 5 mm in the LEFT kidney. The adrenal glands are normal. Chest Wall: There is mild bilateral symmetric gynecomastia. Bones: There are degenerative changes in the visualized spine. No suspicious lytic or blastic lesions. Procedure Note Mike Dempsey, [facility] - 09/08/2022 CT CHEST WITH CONTRAST TECHNIQUE: Multidetector CT of the chest was performed with intravenouscontrast using tailored dose modulation techniques. COMPARISON: None available FINDINGS: Devices/Tubes/Lines: None. Lungs: The central airways are patent. There is mild diffuse bronchialwall thickening. There is subsegmental atelectasis in the lingula. Thereare scattered nodules measuring up to 3 mm including in the RIGHT lung onimage 83, 412, 475, and 533. There are scattered calcified granulomas. Pleura: No pleural effusion or pneumothorax. Mediastinum: The visualized thyroid gland is normal. There is mildcoronary artery calcification. Cardiac chambers are within normal limits.There is no pericardial effusion. There is a small hiatal hernia. Lymph Nodes: No enlarged supraclavicular, axillary, mediastinal, or hilarlymph nodes. Upper Abdomen: Limited contrast-enhanced images of the upper abdomen wereobtained. There are no focal lesions in the visualized liver, spleen, orRIGHT kidney. There are nonobstructing calculi measuring up to 5 mm in theLEFT kidney. The adrenal glands are normal. Chest Wall: There is mild bilateral symmetric gynecomastia. Bones: There are degenerative changes in the visualized spine. Nosuspicious lytic or blastic lesions. IMPRESSION: Pulmonary nodules measuring up to 3 mm which are nonspecific Diffuse bronchial wall thickening keeping with bronchitis. No evidence of fibrotic sequela of Covid RECOMMENDATION: If the patient is low risk for malignancy, no follow up CT is necessary.If there is a history of smoking, Chest CT in 12 months. If there is ahistory of malignancy within the past 5 years, follow-up chest CT in 3months. Nicholas EPSTEIN CT CHEST Final Resul t documented in this encounter Visit Diagnoses Diagnosis Chronic cough Cough Chronic cough Cough documented in this encounter Additional Health Concerns Infection Onset Date Last Indicated Resolved Time CoV-Risk 07/25/2023 07/25/202308/05/2023 1:21 AM EDT documented as of this encounter Care Teams Lyric Writer Relationship Specialty Start Date End Date Nicholas Newby MD [address] [address] [email or web address] PCP - General Internal Medicine 02/18/22 documented as of this encounter Additional Source Comments The information contained in this document represents components of the legal health record. It is not the complete legal health record.[facility]
--- OUTSIDE RECORDS SUMMARY | 2025-02-05 16:49 | XMS_ITS | Encounter Summary ---
Author Organization [facility] Address [address] [place] [address] [place] [address] Phone Care Team Providers Care Quality Process Auditor Name Role Phone Nicholas Newby MD Primary Care Provider [phone] Encounter Details Date Type Department Care Team (Late st Contact Info) Description 08/25/2023 Procedure Pass MRI, [facility] - [address], [address] [place] [id number] Social History Tobacco Use Types Packs/Day Years [...] on filedocumented in this encounter Care Teams Quality Process Auditor Relationship Specialty Start Date End Date Nicholas Newby MD [address] [address] [email or web address] PCP - General Internal Medicine 02/18/22 documented as of this encounter Additional Source Comments The information contained in this document represents components of the legal health record. It is not the complete legal health record.[facility]
--- OUTSIDE RECORDS SUMMARY | 2025-02-05 16:49 | XMS_ITS | Encounter Summary ---
Author Organization [facility] Address [address] [place] [address] [place] [address] Phone Care Team Providers Care Water Reuse Program Manager Name Role Phone Nicholas Newby MD Primary Care Provider [phone] Encounter Details Date Type Department Care Team (Late st Contact Info) Description 08/25/2023 Procedure Pass MRI, [facility] - [address], [address] [place] [id number] Social History Tobacco Use Types Packs/Day Years [...] on filedocumented in this encounter Care Teams Water Reuse Program Manager Relationship Specialty Start Date End Date Nicholas Newby MD [address] [address] [email or web address] PCP - General Internal Medicine 02/18/22 documented as of this encounter Additional Source Comments The information contained in this document represents components of the legal health record. It is not the complete legal health record.[facility]
--- OUTSIDE RECORDS SUMMARY | 2025-02-05 16:49 | XMS_ITS | Clinical Summary ---
Author Organization [facility] Address [address] [place] [address] Care Team Providers Care Generator Assembler Name Role Phone Odin Peterson Primary Care Provider [phone] Social History Tobacco Use Types Packs/Day Years Used Date Smoking Tobacco: Never Assessed Sex and Gender Information Value Date Recorded Sex Assigned at Not on file Legal Sex Male 9:48 AM EDT Gender Identity Not on file Sexual Orientation Not on file Plan of Treatment Health Maintenance Due Date Last Done Comments DTaP,Tdap,and Td Vaccines (1 - Tdap) 02/15/1966 Pneumococcal Vaccine: 50+ Ye ars (1 of 1 - PCV) 02/15/1994 Zoster Vaccines (1 of 2) 02/15/1994 RSV Vaccine (60+ years old a nd patients) (1 - 1-dose 75+ series) 02/15/2019 Alcohol/Substance Use Screening 04/25/2024 Depression Screening and Follow-Up 04/25/2024 Health Care Proxy Review 04/25/2024 Social Drivers of Health Janey ual Screening 04/25/2024 COVID-19 Vaccine (1 - 2024-2 6 season) 2024 Influenza Vaccine (#1) 2024 Hepatitis B Vaccines Aged Out No long er eligible based on patient's age to complete this topic Insurance [facility] [employer]PLACE AARP [place] [id number] Care Teams Generator Assembler Relationship Specialty Start Date End Date Odin Peterson [address] [place] [address] PCP - General 09/23/22
--- OUTSIDE RECORDS SUMMARY | 2025-02-05 16:49 | XMS_ITS | Clinical Summary ---
Author Organization [facility] Address [address] [place] [phone] Phone Care Team Providers Care Proposal Editor Name Role Phone Nicholas Newby MD Primary Care Provider [phone] Allergies No known active allergies Medications atorvastatin calcium (ATORVASTATIN ORAL) Take 1 tablet by mouth daily. Active albuterol (PROAIR HFA) 90 mcg/actuation inhaler Inhale 2 puffs into the lungs every 6 (six) hours as needed for wheezing. 18 g 3 Active budesonide (PULMICORT) 1 mg/2 mL nebulizer solution 3 Active fluticasone propion-salmetero L (ADVAIR DISKUS) 100-50 mcg/dose DISKUS 3 Active ipratropium (ATROVENT) 42 mcg (0.06 %) nasal spray USE 2 SPRAYS IN BOTH NOSTRILS DAILY AT BEDTIME 2 Active ipratropium-albut Phill (DUONEB) 0.5-3 mg (2.5 mg base)/3 mL nebulizer solution USE 3 ML VIA NEBULIZER TWICE DAILY NEEDED 3 Active traZODone (DESYREL) 150 MG tablet 3 Active lansoprazole (PREVACID) 30 MG capsule 4 Active gabapentin (NEURONTIN) 800 MG tablet 4 Active betamethasone dipropionate 0.05 % lotion Apply topically 2 (two) times a day. To scalp BID x 3-5 days prn flaring 50 mL 2 Active Hospital, Clinic, or Other Facility Administered Medication Ordered Dose Route Frequency Start Date End Date Status ipratropium-albuteroL (DUONEB) 0.5-3 mg (2.5 mg base)/3 mL nebulizer solution 3 mLIndications:Acute upper respiratory infection 3 mL Nebu 4 times daily 07/25/2023 Active Active Problems No known active problems Social History Tobacco Use Types Packs/Day Years Used Date Smoking Tobacco: Former Smokeless Tobacco: Never Tobacco Cessation:Counseling Given: Not Answered Education Answer Date Recorded Are you interested [...] Orientation Straight 02/18/2022 1: 04 PM EDT Last Filed Vital Signs Vital Sign Reading Time Taken Comments Blood Pressure 138/72 09/29/2023 8:35 AM EDT Pulse 64 09/29/2023 7:12 AM EDT Temperature 37.1 C (98.7 F) 07/25/2023 10:02 AM EDT Respiratory Rate - - Oxygen Saturation 98% 09/29/2023 7:12 AM EDT Inhaled Oxygen Concentration - - Weight 81.6 kg (180 lb) 09/29/2023 7:12 AM EDT Height 180.3 cm (5' 11 ) 09/29/2023 7:12 AM EDT Body Mass Index 25.1 09/29/2023 7:12 AM EDT Plan of Treatment Health Maintenance Due Date Last Done Comments Adult Td,Tdap Booster 1944 LIPID PANEL 1944 DEPRESSION SCREENING 1956 SMOKING Hx and SMOKELESS TOB ACCO SCREENING 02/15/1957 PNEUMOCOCCAL VACCINES (50+ y ears) (1 of 1 - PCV) 02/15/1994 ZOSTER VACCINES (1 of 2) 02/15/1994 RSV VACCINE (1 - 1-dose 75+ series) 02/15/2019 INFLUENZA VACCINE (#1) 2024 COVID-19 VACCINE (1 - 2024-2 6 season) 2024 HEPATITIS A VACCINES Aged Out No long er eligible based on patient's age to complete this topic HIB VACCINES Aged Out No longer eligi ble based on patient's age to complete this topic MENINGOCOCCAL VACCINES (ACWY) Aged Out No longer eligible based on patient's age to complete this topic MENINGOCOCCAL VACCINES (B) Aged Out N o longer eligible based on patient's age to complete this topic Medical Devices Not on file Insurance [facility] [place] [address] MEDICARE PART A & B [facility] MEDICARE REPLACEMENT [place] [id number] MEDICARE PART A & B [facility] MEDICARE REPLACEMENT MEDICARE PART A & B [facility] MEDICARE REPLACEMENT MEDICARE PART A & B [facility] MEDICARE REPLACEMENT MEDICARE PART A & B [facility] MEDICARE REPLACEMENT MEDICARE PART A & B [facility] MEDICARE REPLACEMENT MEDICARE PART A & B [facility] MEDICARE REPLACEMENT Member Subscriber Plan / Payer ( fective 2024-) Name:Ketan Doll Relation to Subscriber:Self Name:Ketan Doll Payer ID:[id number] (NAIC) Type:Medicare Address: [place] [id number] MEDICARE PART A & B [facility] MEDICARE REPLACEMENT [place] [id number] MEDICARE PART A & B [facility] MEDICARE REPLACEMENT MEDICARE PART A & B Care Teams Proposal Editor Relationship Specialty Start Date End Date Nicholas Newby MD [address] [place] [id number] [email or web address] PCP - General Internal Medicine 02/18/22 Additional Source Comments The information contained in this document represents components of the legal health record. It is not the complete legal health record.[facility]
--- OUTSIDE RECORDS SUMMARY | 2025-02-05 16:49 | XMS_ITS | Patient Health Record ---
Author Organization [facility] Address [address] [place] [address] Care Team Providers Care Stitcher Operator Name Role Phone Symone Quiles Primary Care Provider Kobe Nuñez Unavailable [phone] Reason For Referral No Information Medications Medication SIG (Take, Route, Fr equency, Duration) Notes Start Date End Date Status traZODone HCl Active Atorvastatin Calcium Active Lisinopril Active Aspir-81 Active Immunizations Vaccine Route Administration Date Status Comme nts Influenza Unknown 12/24/2017 Administered Social History Tobacco Use: Social History Observation Description Date Details (start date - stop date) Never Smoker NA - NA Tobacco Use/Smoking Question Answer Notes Patient is a nonsmoker Alcohol Screen Question Answer Notes Did you have a drink containing alcohol in the p ast year? No Points 0 Interpretation Negative Section Notes: Nonsmoker; no sig alcohol Problems Problem Type SNOMED Code ICD Code Onset Dates Problem Status W/U Status Risk Notes Problem Screening for malignant neoplasm of colon (718564479) Encounter for screening for malignant neoplasm of colon (Z12.11) Active confirmed Problem History of adenomatous polyp of colon (670478637) Hx of adenomatous colonic polyps (Z86.010) Active confirmed Problem Pre-procedure evaluation check (850378176) Pre-procedural examination (Z01.818) Active confirmed Problem Long-term current use of antiplatelet drug (021521623176647 ) Encounter for long-term (current) aspirin use (Z79.82) Active confirmed Plan Of Treatment Pending Test Test Name Order Date GI BIOPSY 05/23/2018 Future Test Test Name Order Date COLONOSCOPY 03/30/2018 Insurance Providers Payer Name Payer Address Payer Phone Subscriber Number Group Number Insured Name Patient Relationship to Insured Coverage Start Date Coverage End Date AARP MEDI COMPLETE (REFERRAL REQUIRED) [address] [address] [place] [address] [id number] MEKA DOLL Self - patient is the insured Medical (General) History Medical History History ICD Code Denies [place],DM,CVA,Lung disease,renal dise ase Hyperlipidemia HTN EGD in 2005 revealed a small to moderate sized hiatal hernia, but no evidence of esophagitis nor Lubin's esophagus Colonoscopies--Tubular adeno mas removed in 1997 [address] [place] [address] Mulligan, tubular adenomas removed in 2005 with , and he had a negative colonoscopy in [address] Alarcon in [place] Surgical History Surgery Date(Month/Year) Cholecystectomy Teeth removal
== END 2025-02-05 14:50 | disposition home or self-care (01) ==
LOC: HO.HMCSH 13:50
PROVIDERS: PCP Internal Medicine; Visit Provider Physician Assistant Medical
DX: Z00.00 Encounter for general adult medical examination without abnormal findings (principal); M79.604 Pain in right leg; E11.9 Type 2 diabetes mellitus without complications; J44.9 Chronic obstructive pulmonary disease, unspecified; F41.9 Anxiety disorder, unspecified; F32.A Depression, unspecified; R03.0 Elevated blood-pressure reading, without diagnosis of hypertension

== ENCOUNTER 2025-03-05 11:07 | Outpatient (AMB) | payer OTHER, MEDICARE, SELFPAY ==
[2025-03-05 11:11] VITALS: BP 154/80; PULSE 70; RESP 14; TEMP 36.6; O2SAT 98; BMI 27.1
--- NOTE | 2025-03-05 11:11 | A.OFFPC_ITS ---
Vital Signs 03/05/25 11:11 Height 5 ft 9.69 in Weight 187 lb BMI 27.1 BP 154/80 H Blood Pressure Location Rt brachial Position Sitting Respiration 14 Pulse 70 Pulse Source Pulse Oximeter Temp 97.9 F Temp Source Temporal Artery Scan Pulse Oximetry (%) 98 Oxygen Delivery Method Room Air Intake Visit Reasons: 1 moth follow up/BP Check Garment Manufacturer Required: No Accompanied by: Self / Same As Patient Allergies Environmental Allergy (Unknown, Uncoded 03/05/25 11:11) Unknown Tobacco use date assessed: 03/05/25 Dental Screening Dental Screen Date: 02/05/25 [facility] Medical History Pure hypercholesterolemia, unspecified Elevated alkaline phosphatase level Elevated bilirubin Hypertriglyceridemia Hyperlipidemia Elevated PSA Elevated blood pressure reading Anxiety and depression Diabetes mellitus type 2, diet-controlled Annual physical exam COPD (chronic obstructive pulmonary disease) Right leg pain Neuropathy Coarse tremor Dyslipidemia HTN (hypertension) Polyneuropathy associated with underlying disease Diabetes Surgical History History of colonoscopy (~05/23/18) History of surgery History of laparoscopic cholecystectomy Family History Father History of heart attack Mother History of heart attack Brother No problems noted. Brother No problems noted. Brother Colon cancer Cancer of prostate History of quadruple bypass Brother No problems noted. Brother No problems noted. Sister No problems noted. Sister No problems noted. Son Colon cancer Social History Housing: House Patient Tobacco Use Status: Never used Tobacco service: No Current occupational status: retired Cognitive needs: No Hearing needs: No Vision needs: Yes (rx glasses) Questionnaire PHQ-9 Over the last 2 weeks, how often have you been bothered by any of the following problems? 1. Little interest or pleasure in doing things: not at all 2. Feeling down, depressed, or hopeless: not at all 3. Trouble falling or staying asleep, or sleeping too much: not at all 4. Feeling tired or having little energy: not at all 5. Poor appetite or overeating: not at all 6. Feeling bad about yourself - or that you are a failure or have let yourself or your family down: not at all 7. Trouble concentrating on things, such as reading the newspaper or watching television: not at all 8. Moving or speaking so slowly that other people could have noticed. Or the opposite - being so fidgety or restless that you have been moving around a lot more than usual: not at all 9. Thoughts that you would be better off or of hurting yourself in some way: not at all Total score: 0 Depression Screening Interpretation: Negative Depression Screening Done: Yes 56217 - PHQ-9 Billing: Yes Source: Developed by Drs. Kobe Soriano, Sydni Oconnor, Gene Bills and colleagues, with an educational rigo from [employer]. Thrive Questionnaire Date Thrive assessed: 02/05/25 I am a: Patient What is your living situation today?: I have a steady place to live Within the past 12 months, did the food you bought not last and you didn't have the money to get more?: Never true Within the past 12 months, did you worry whether your food would run out before you got money to buy more?: Never true Do you have trouble paying for medicines?: No Do you have trouble getting transportation to medical appointments?: No Do you have trouble paying your heating and electricity bill?: No Do you have trouble taking care of your child, family member or friend?: No Do you have trouble with day-to-day activities such as bathing, preparing meals, shopping, managing finances, etc.?: No Are you currently unemployed and looking for a job?: No Are you interested in more education?: No Please select the resources that you would like help with: None THRIVE Score: 0 AUDIT C Alcohol Use Questionnaire (AUDIT-C) 1. How often do you have a drink containing alcohol?: Never 3. How often do you have six or more drinks on one occasion?: Never Total Score: 0 Score Reviewed/Action Taken: No MELLY-7 AMB Questionnaire MELLY-7 Date MELLY - 7 assessed: 02/05/25 Feeling nervous, anxious, or on edge: 0 = Not at all Not being able to stop or control worryin = Not at all Worrying too much about different things: 0 = Not at all Trouble relaxin = Not at all Being so restless that it is hard to sit still: 0 = Not at all Becoming easily annoyed or irritable: 0 = Not at all Feeling afraid as if something awful might happen: 0 = Not at all Total MELLY-7 score (0-4 normal; 5-9 mild; 10-14 moderate; 15-21 severe): 0 Source: Developed by Drs. Kobe oSriano, Sydni Oconnor, Gene Bills and colleagues, with an educational rigo from [employer]. MELLY-7 Assessment Billing MELLY-7 Assessment Tool: MELLY-7 Assessment 71817 Physical exam (Primary Care) Vital Signs: Last Vital Signs Temp 97.9 F 03/05/25 11:11 Pulse 70 03/05/25 11:11 Resp 14 03/05/25 11:11 BP 154/80 H 03/05/25 11:11 Pulse Ox 98 03/05/25 11:11 Oxygen Delivery Method Room Air 03/05/25 11:11 BMI result Body Mass Index 27.1 Tobacco/Smoking Status: Tobacco use Status Tobacco use date assessed 03/05/25 03/05/25 11:17 Patient Tobacco Use Status Never used Tobacco 03/05/25 11:17 PHQ-9: PHQ-9 Score PHQ-9: Total score 0 03/05/25 11:17 Depression Screening Interpretation: Negative Thrive Assessment: Date of Thrive Assessment Date Thrive assessed 02/05/25 03/05/25 11:17 Office Procedures Flu Questionnaire Does the patient have a severe egg allergy?: No Does the patient have severe life threatening allergies?: No Does the patient have a fever or illness today?: No Has the patient ever had Guillain-[place] Syndrome?: No Has the patient ever had any past reaction to a flu shot?: No Immunizations Fluarix [id number] (PF) 45 mcg (15 mcg x 3)/0.5 mL IM syringe Performing Provider: Raz Walker MD [facility] Documented (not given) by: WANDA Arreola on 03/05/25 11:18 Reason Not Given: Received Previously Coding Level of Care Code Est Pt Level 4 (86149) Complex EM visit Add On G2211 Diagnoses Elevated blood pressure reading R03.0 Additional Codes MELLY-7 Assessment Billing - MELLY-7 Assessment Tool: MELLY-7 Assessment 32303 ([id number]) PHQ-9 - 58034 - PHQ-9 Billing: Yes ([id number]) Assessment & Plan Assessment & Plan (1) Elevated blood pressure reading: Code(s): R03.0 - Elevated blood-pressure reading, without diagnosis of hypertension Category: Medical Plan: History of Present Illness - The patient is an 80-year-old male presenting for follow-up on his blood pressure. - A previous provider, Xiomara, was concerned about a high blood pressure reading and asked the patient to monitor it at home. - The patient presented a log of his home blood pressure readings, with me asurements such as 137/78 and 137/71. - The patient reports occasional, but not frequent, lightheadedness. - The patient is not on any blood pressure medication. - Current medications include trazodone for sleep and Zetia. - He has had cataract surgery but still dislikes driving at night due to glare from bright lights. - Per his , his hearing is not good, but he reports no difficulty hearing on the phone or TV. - He reports sleeping well and waking up fresh when he takes trazodone. - He denies any trouble with urination. - He has received his flu shot. - He is a retired homebuilder. Social History - Employment: The patient is a retired homebuilder. - Functional Status: The patient drives but avoids doing so at night due to glare from lights. Review of Systems - Neurological: Reports occasional, infrequent lightheadedness. - HEENT: Reports difficulty driving at night due to glare despite prior cataract surgery. Patient's reports hearing loss, but patient denies difficulty hearing on the phone or TV. - Genitourinary: Denies difficulty urinating. - Psychiatric: Reports good sleep quality with trazodone. - Musculoskeletal: Reports taking ibuprofen for leg pain. Physical Exam General: Cooperative and healthy appearing Nutritional Appearance: Well nourished Orientation/consciousness: Patient oriented x3 Limitations: No limitations Head: Normal to inspection General: Appearance normal, both eyes and all related structures Neck: Normal visual inspection Chest: Normal palpation of entire chest wall Respiratory: N ormal respiratory effort Neurology: Patient oriented x3, no problem driving during the day, but difficulty driving at night due to glare from bright lights. Hearing is reportedly not good according to spouse, but patient can hear on the phone and TV. Results - Home Blood Pressure Monitoring: Patient presented with a log of home blood pressure readings. The readings are within range, including values such as 137/78 and 137/71. Plan - The patient's home blood pressure readings do not suggest hypertension, so no medication will be initiated at this time. - Advised the patient to continue monitoring his blood pressure at home, but reduce frequency to two or three times a week. - For difficulty driving at night due to glare, recommended trying yellow-tinted goggles. - Will send refills for trazodone and ibuprofen to [facility]. - The patient will maintain his follow-up appointment with Xiomara, scheduled for six months from now. Discussion Notes I reviewed the patient's home blood pressure log and reassured him that his readings are within a normal range and do not indicate hypertension. I advised him that no blood pressure medication is necessary at this time and he can reduce his monitoring frequency to 2-3 times per week. We discussed his difficulty driving at night due to glare, and I recommended trying yellow-tinted goggles. I agreed to provide refills for his trazodone and ibuprofen, which will be sent to his home delivery pharmacy. I advised him to keep his follow-up appointment in six months. Patient Instructions - Your home blood pressure readings are in a good range, and you do not have high blood pressure or need medication for it at this time. - You can check your blood pressure less often now. Checking it two or three times a week is enough. - If you have to drive at night, try using yellow-tinted goggles to help reduce the glare from oncoming lights. - I am sending refills for your Trazodone and Ibuprofen prescriptions to your [facility] pharmacy. - Please keep your follow-up appointment in about six months. Orders: Orders Influenza [id number] Immunization Today Z23 - Encounter for immunization Medications: Refilled trazodone 150 mg PO BEDTIME 90 tabs 3RF ibuprofen 800 mg PO BID PRN 180 tabs 3RF pain 90 days
--- OUTSIDE RECORDS SUMMARY | 2025-03-05 13:17 | XMS_ITS | Encounter Summary ---
Author Organization Located [facility] Address [address] [place] [address] [place] [address] Phone Care Team Providers Care Landing Worker Name Role Phone Nicholas Newby MD Primary Care Provider [phone] Encounter Details Date Type Department Care Team (Late st Contact Info) Description 08/25/2023 Procedure Pass MRI, [facility] - [address], [address] [place] [id number] Social History Tobacco Use Types Packs/Day Years [...] on filedocumented in this encounter Care Teams Landing Worker Relationship Specialty Start Date End Date Nicholas Newby MD [address] [address] [email or web address] PCP - General Internal Medicine 02/18/22 documented as of this encounter Additional Source Comments The information contained in this document represents components of the legal health record. It is not the complete legal health record.[facility]
--- OUTSIDE RECORDS SUMMARY | 2025-03-05 13:17 | XMS_ITS | Patient Health Record ---
Author Organization [facility] Address [address] [place] [address] Care Team Providers Care Fashion Artist Name Role Phone Symone Quiles Primary Care Provider Kobe Nuñez Unavailable [phone] Reason For Referral No Information Medications Medication [...] Problem Screening for malignant neoplasm of colon (083728703) Encounter for screening for malignant neoplasm of colon (Z12.11) Active confirmed Problem History of adenomatous polyp of colon (524026659) Hx of adenomatous colonic polyps (Z86.010) Active confirmed Problem Pre-procedure evaluation check (275465840) Pre-procedural examination (Z01.818) Active confirmed Problem Long-term current use of antiplatelet drug ([id number] ) Encounter for long-term (current) aspirin use (Z79.82) Active confirmed Plan Of Treatment Pending Test Test Name Order Date GI BIOPSY 05/23/2018 Future Test Test Name Order Date COLONOSCOPY 03/30/2018 Insurance Providers Payer Name Payer Address Payer Phone Subscriber Number Group Number Insured Name Patient Relationship to Insured Coverage Start Date Coverage End Date AARP MEDI COMPLETE (REFERRAL REQUIRED) [address] [address] [place] [address] [phone] [id number] MEKA DOLL Self - patient is the insured Medical (General) History Medical History History ICD Code Denies [place],DM,CVA,Lung disease,renal dise ase Hyperlipidemia HTN EGD in 2005 revealed a small to moderate sized hiatal hernia, but no evidence of esophagitis nor Lubin's esophagus Colonoscopies--Tubular adeno mas removed in 1997 and [place] [address] Mulligan, tubular adenomas removed in 2005 with , and he had a negative colonoscopy in [address] Alarcon in [place] Surgical History Surgery Date(Month/Year) Cholecystectomy Teeth removal
--- OUTSIDE RECORDS SUMMARY | 2025-03-05 13:17 | XMS_ITS | Encounter Summary ---
Author Organization [facility] Address [address] [place] [address] [place] [address] Phone Care Team Providers Care Clinical Researcher Name Role Phone Nicholas Newby MD Primary Care Provider [phone] Encounter Details Date Type Department Care Team (Late st Contact Info) Description 08/19/[address], [facility] - [address], [address] [place] [id number] Social History Tobacco Use Types Packs/Day Years [...] documented as of this encounter Care Teams Clinical Researcher Relationship Specialty Start Date End Date Nicholas Newby MD [address] [address] [email or web address] PCP - General Internal Medicine 02/18/22 documented as of this encounter Additional Source Comments The information contained in this document represents components of the legal health record. It is not the complete legal health record.[facility]
--- OUTSIDE RECORDS SUMMARY | 2025-03-05 13:17 | XMS_ITS | Encounter Summary ---
Author Organization [facility] Address [address] [place] [address] [place] [address] Phone Care Team Providers Care Clam Treader Name Role Phone Nicholas Newby MD Primary Care Provider [phone] Encounter Details Date Type Department Care Team (Late st Contact Info) Description 08/25/2023 Procedure Pass MRI, [facility] - [address], [address] [place] [id number] Social History Tobacco Use Types Packs/Day Years [...] on filedocumented in this encounter Care Teams Clam Treader Relationship Specialty Start Date End Date Nicholas Newby MD [address] [address] [email or web address] PCP - General Internal Medicine 02/18/22 documented as of this encounter Additional Source Comments The information contained in this document represents components of the legal health record. It is not the complete legal health record.[facility]
--- OUTSIDE RECORDS SUMMARY | 2025-03-05 13:17 | XMS_ITS | Encounter Summary ---
Author Organization [facility] Address [address] [place] [address] [place] [address] Phone Care Team Providers Care Audio Technician Name Role Phone Nicholas Newby MD Primary Care Provider [phone] Encounter Details Date Type Department Care Team (Late st Contact Info) Description 08/25/2023 Procedure Pass MRI, [facility] - [address], [address] [place] [id number] Social History Tobacco Use Types Packs/Day Years [...] on filedocumented in this encounter Care Teams Audio Technician Relationship Specialty Start Date End Date Nicholas Newby MD [address] [address] [email or web address] PCP - General Internal Medicine 02/18/22 documented as of this encounter Additional Source Comments The information contained in this document represents components of the legal health record. It is not the complete legal health record.[facility]
--- OUTSIDE RECORDS SUMMARY | 2025-03-05 13:17 | XMS_ITS | Encounter Summary ---
Author Organization [facility] Address [address] [place] [address] Phone Care Team Providers Care Chute Puller Name Role Phone Nicholas Newby MD Primary Care Provider [phone] Reason for Referral * MRI/CAT Scan - Closed Specialty Diagnoses / Procedures Referred By Lisa lombardo Referred To Contact Radiology Diagnoses Chronic cough Procedures CT Chest CHG DIAGNOSTIC COMPUTED TOMOGRAPHY THORAX W/CONTRAST Nicohlas Newby MD [address] [address] Phone: tel: fax: mailto:[email or web address] Referral ID Status Reason Start Date Expiration Date Visits Re quested Visits Authorized [id number] Closed 08/27/2022 09/26/2022 1 1 Encounter Details Date Type Department Care Team (Late st Contact Info) Description 08/19/2022 Ancillary Orders [facility] [place] [address] [place] [address] Nicholas Newby MD [address] [address] [email or web address] Chronic cough Social History Tobacco Use Types [...] or blastic lesions. Procedure Note Mike Dempsey, [facility] - 09/08/2022 CT CHEST WITH CONTRAST [...] documented as of this encounter Care Teams Chute Puller Relationship Specialty Start Date End Date Nicholas Newby MD [address] [address] [email or web address] PCP - General Internal Medicine 02/18/22 documented as of this encounter Additional Source Comments The information contained in this document represents components of the legal health record. It is not the complete legal health record.[facility]
--- OUTSIDE RECORDS SUMMARY | 2025-03-05 13:17 | XMS_ITS | Clinical Summary ---
Author Organization [facility] Address [address] [place] [address] Phone Care Team Providers Care Brake Lining Curer Name Role Phone Nicholas Newby MD Primary Care Provider [phone] Allergies No known active allergies Medications atorvastatin [...] Last Done Comments Adult Td,Tdap Booster 1944 DEPRESSION SCREENING 1956 PNEUMOCOCCAL VACCINES (50+ y ears) (1 of [...] on patient's age to complete this topic IPV VACCINES Aged Out No longer eligi ble based on patient's age to complete this topic MENINGOCOCCAL VACCINES (ACWY) Aged Out No longer eligible based on patient's age to complete this topic MENINGOCOCCAL VACCINES (B) Aged Out N o longer eligible based on patient's age to complete this topic Medical Devices Not on file Insurance [facility] MEDICARE REPLACEMENT MEDICARE PART A & B [facility] MEDICARE REPLACEMENT [place] [id number] MEDICARE PART A & B [facility] MEDICARE REPLACEMENT [place] [id number] MEDICARE PART A & B [facility] MEDICARE REPLACEMENT MEDICARE PART A & B [facility] MEDICARE REPLACEMENT MEDICARE PART A & B [facility] MEDICARE REPLACEMENT MEDICARE PART A & B [facility] MEDICARE REPLACEMENT MEDICARE PART A & B [facility] MEDICARE REPLACEMENT Member Subscriber Plan / Payer (Ef fective 2024-) Name:Ketan Doll Relation to Subscriber:Self Name:Ketan Doll Payer ID:[id number] (IC) Type:Medicare Address: [place] [phone] MEDICARE PART A & B [facility] MEDICARE REPLACEMENT [place] [id number] MEDICARE PART A & B [facility] MEDICARE REPLACEMENT [place] [id number] MEDICARE PART A & B Care Teams Brake Lining Curer Relationship Specialty Start Date End Date Nicholas Newby MD [address] [place] [address] [email or web address] PCP - General Internal Medicine 02/18/22 Additional Source Comments The information contained in this document represents components of the legal health record. It is not the complete legal health record.[facility]
--- OUTSIDE RECORDS SUMMARY | 2025-03-05 13:17 | XMS_ITS | Clinical Summary ---
Author Organization [facility] Address [address] [place] [address] Care Team Providers Care Graining Machine Operator Name Role Phone Odin Peterson Primary Care Provider [phone] Social History Tobacco Use Types Packs/Day Years [...] Screening 04/25/2024 Depression Screening and Follow-Up 04/25/2024 Fall Risk Screening 04/25/2024 Health Care Proxy Review 04/25/2024 Social Drivers of Health Janey ual Screening 04/25/2024 COVID-19 Vaccine (1 - 2024-2 6 season) 2024 Influenza Vaccine (#1) 2024 Hepatitis B Vaccines Aged Out No long er eligible based on patient's age to complete this topic Insurance [facility] MCR REPLACE AARP Care Teams Graining Machine Operator Relationship Specialty Start Date End Date Odin Peterson [address] [place] [address] PCP - General 09/23/22
== END 2025-03-05 11:48 | disposition home or self-care (01) ==
LOC: HO.HMCSH 11:08
PROVIDERS: PCP Internal Medicine; Visit Provider Internal Medicine
DX: Z23 Encounter for immunization (principal); R03.0 Elevated blood-pressure reading, without diagnosis of hypertension

== ENCOUNTER → 2025-03-05 11:07 | Outpatient (BNVA) | payer MEDICARE, SELFPAY | PROVIDERS: PCP Internal Medicine; Visit Provider Internal Medicine | DX: R03.0 Elevated blood-pressure reading, without diagnosis of hypertension (principal); Z28.89 Immunization not carried out for other reason | CPT/HCPCS: 90471; 96127 ==

== ENCOUNTER 2025-04-05 09:20 | Outpatient (AMB) | payer MEDICARE, SELFPAY ==
--- NOTE | 2025-04-05 09:30 | A.OFFVIS_ITS ---
Intake Visit Reasons: Elevated PSA/FM Hx Of Prostate Ca/UA(set) Intake Note: Reason for Visit: New Patient Elevated PSA/FM History Of Prostate Cancer Urology Meds: None Blood Thinners: None Antibiotic Allergy: None Labs: Total PSA- 5.1 Free PSA- 1.5 %Free PSA: 29 A1C- 6.9 (02/05/2025) Imaging: None Last PVR: None Family History: Prostate Cancer? Yes Brother Bladder Cancer? No Kidney Cancer? No Previous Urology? No Range Technician Required: No Accompanied by: Self / Same As Patient Allergies Environmental Allergy (Unknown, Uncoded 04/05/25 09:34) Unknown PFSH Medical History Pure hypercholesterolemia, unspecified Elevated alkaline phosphatase level Elevated bilirubin Hypertriglyceridemia Hyperlipidemia Elevated PSA Elevated blood pressure reading Anxiety and depression Diabetes mellitus type 2, diet-controlled Annual physical exam COPD (chronic obstructive pulmonary disease) Right leg pain Neuropathy Coarse tremor Dyslipidemia HTN (hypertension) Polyneuropathy associated with underlying disease Diabetes Surgical History History of colonoscopy (~05/23/18) History of surgery History of laparoscopic cholecystectomy Family History Father History of heart attack Mother History of heart attack Brother No problems noted. Brother No problems noted. Brother Colon cancer Cancer of prostate History of quadruple bypass Brother No problems noted. Brother No problems noted. Sister No problems noted. Sister No problems noted. Son Colon cancer Social History Housing: House Patient Tobacco Use Status: Never used Tobacco service: No Current occupational status: retired Cognitive needs: No Hearing needs: No Vision needs: Yes (rx glasses) Results AMB Urinalysis, Automated UA Leukoctes 0 Katherin/uL Last Edit by WANDA Gaxiola on 04/05/25 09:42 UA Nitrite Negative Last Edit by WANDA Gaxiola on 04/05/25 09:42 UA Urobilinogen 0.2 mg/dL Last Edit by WANDA Gaxiola on 04/05/25 09:4 2 UA Protein 0 mg/dL Last Edit by Ciera Hernández RMA on 04/05/25 09:42 UA pH 6.5 Last Edit by Ciera Hernández RMA on 04/05/25 09:42 UA Blood 0 Aj/uL Last Edit by Ciera Hernández, RMA on 04/05/25 09:42 UA Specific Mary Alice 1.010 Last Edit by Ciera Hernández RMA on 04/05/25 09: 42 UA Ketone Negative Last Edit by Ciera Hernández RMA on 04/05/25 09:42 UA Bilirubin 0 mg/dL Last Edit by Ciera Hernández, RMA on 04/05/25 09:42 UA Glucose 0 mg/dL Last Edit by Ciera Hernández A on 04/05/25 09:42 Results Reviewed Results Reviewed: Laboratory Last Values Urine pH (Auto) 6.5 04/05/25 09:35 Specific Mary Alice (Auto) 1.010 04/05/25 09:35 Urine Protein (Auto) 0 mg/dL 04/05/25 09:35 Glucose (UA)(Auto) 0 mg/dL 04/05/25 09:35 Urine Ketones (Auto) Negative 04/05/25 09:35 Urine Blood (Auto) 0 Aj/uL 04/05/25 09:35 Urine Nitrite (Auto) Negative 04/05/25 09:35 Urine Bilirubin (Auto) 0 mg/dL 04/05/25 09:35 Urine Urobilinogen (Auto) 0.2 mg/dL 04/05/25 09:35 Leukocyte Esterase (Auto) 0 Katherin/uL 04/05/25 09:35 Assessment & Plan Assessment & Plan Orders: Orders AMB Urinalysis Automated Today Z13.9 - Encounter for screening, unspecified PSA,Total (Free>4and<10) 12 Months R97.20 - Elevated prostate specific antigen [PSA] Coding
== END 2025-04-05 10:23 | disposition home or self-care (01) ==
LOC: HO.HUSH 09:20
PROVIDERS: PCP Internal Medicine; Visit Provider Urology
DX: Z13.9 Encounter for screening, unspecified (principal)

== ENCOUNTER → 2025-04-05 09:20 | Outpatient (BNVA) | payer MEDICARE, SELFPAY | PROVIDERS: PCP Internal Medicine; Visit Provider Urology | DX: R97.20 Elevated prostate specific antigen [PSA] (principal) | CPT/HCPCS: 81003 ==